=== PATIENT | male | born 1960 | race Caucasian/White ===

== ENCOUNTER → 2016-11-22 09:12 | Emergency (ER) | payer BC ==
[2016-11-22 09:31] VITALS: BP 148/100
--- NOTE | 2016-11-22 12:45 | ED ---
Throat Pain/Nasal Congestion - HPI Summary HPI Summary: 56 male presents with complaints of a FB in right after being poked by a stick while lawn mowing. Patient states he can visibly see the FB. He attempted to flush and removed it but was unable. Patient does not wear contacts or glasses. States he has normal vision. Just some irritation, especialy with blinking which makes it worse. No photophobia. Tearing. No PMHX. No other complaints at this time. - History of Current Complaint Chief Complaint: EDEyeProblem Time Seen by Provider: 11/22/16 10:38 Hx Obtained From: Patient Onset/Duration: Sudden Onset Severity: Mild Associated Signs And Symptoms: Positive: FB Sensation Cough: None - Allergies/Home Medications Allergies/Adverse Reactions: Allergies Allergy/AdvReac Type Severity Reaction Status Date / Time No Known Allergies Allergy Verified 03/02/14 17:24 PMH/Surg Hx/FS Hx/Imm Hx Endocrine/Hematology History: Denies: Hx Diabetes Respiratory History: Denies: Hx Asthma, Hx Chronic Obstructive Pulmonary Disease (COPD) Sensory History: Denies: Hx Contacts or Glasses - Surgical History Surgery Procedure, Year, and Place: n/a - Immunization History Date of Tetanus Vaccine: 02/2014 Immunizations Up to Date: Yes Infectious Disease History: No Infectious Disease History: Denies: Traveled Outside the [place] in Last 30 Days - Family History Known Family History: Positive: None - Social History Alcohol Use: Weekly Substance Use Type: Reports: None Smoking Status (MU): Former Smoker Review of Systems Constitutional: Negative Positive: Other - pain, FB ENT: Negative Cardiovascular: Negative Respiratory: Negative Skin: Negative All Other Systems Reviewed And Are Negative: Yes Physical Exam Triage Information Reviewed: Yes Vital Signs On Initial Exam: Initial Vitals Temp Pulse Resp BP Pulse Ox 97.5 F 73 16 148/100 98 11/22/16 09:28 11/22/16 09:28 11/22/16 09:28 11/22/16 09:28 11/22/16 09:28 BP elevated, noted, patient was in pain and anxious Vital Signs Reviewed: Yes Appearance: Positive: Well-Appearing - anxious, No Pain Distress, Well-Nourished Skin: Positive: Warm, Skin Color Reflects Adequate Perfusion, Dry. Negative: Cold, Pale, Erythema @ Head/Face: Positive: Normal Head/Face Inspection Eyes: Positive: EOMI, SHELLY, Conjunctiva Clear - with brown, small, debris/FB noted, Other: - fluroscein stain completed. FB removed with a q-tip without complication, appeared to be piece of a branch. small abrasion under area FB was embedded noted. no rust ring noted. ENT: Positive: Hearing grossly normal, Pharynx normal, TMs normal Neck: Positive: Supple, Nontender Respiratory/Lung Sounds: Positive: Clear to Auscultation, Breath Sounds Present. Negative: Rales, Rhonchi, Wheezes Cardiovascular: Positive: Normal, RRR, Pulses are Symmetrical in both Upper and Lower Extremities. Negative: Murmur, Rub Musculoskeletal: Positive: Strength/ROM Intact Neurological: Positive: Normal, Sensory/Motor Intact, Alert, Oriented to Person Place, Time Procedures - Eye Procedure Alcaine Drops Administered: Yes - fluroscien stain preformed Eye FB Removal: removal w/ cotton swab - right eye, without complication Eye Irrigated w/ Saline (ccs): 100 Diagnostics - Vital Signs Vital Signs Temp Pulse Resp BP Pulse Ox 11/22/16 10:35 97.3 F 78 17 148/100 100 11/22/16 09:28 97.5 F 73 16 148/100 98 - Laboratory Lab Statement: Any lab studies that have been ordered have been reviewed, and results considered in the medical decision making process. EENT Course/Dx - Course Course Of Treatment: FB was removed using a q-tip without complication. patient tolerated procedure well. due to injury and sign of small corneal abrasion will treat with antibiotic drop. no rust ring noted. aware of worsening signs and symptoms. follow up with pcp and optho. - Differential Diagnoses Differential Diagnoses: Conjunctivitis, Corneal Abrasion, Foreign Body - Diagnoses Provider Diagnoses: Eye foreign body, Corneal abrasion, right Discharge - Discharge Plan Condition: Stable Disposition: HOME Prescriptions: Polymyx/Trimethoprim OPTH* [Polytrim OPHTH*] 1 drop RIGHT EYE Q3H #1 btl Patient Education Materials: Eye Foreign Body (ED) Referrals: Bart Kaur MD [Primary Care Provider] - Additional Instructions: Use prescribed antibiotic drops as directed. You may decrease use after 4 days use to 2-3 times a day. Watch for worsening signs and symptoms to watch out for. If symptoms persist or worsen seek medical attention immediately. Follow up with primary care provider or eye doctor listed below if symptoms persist.
== END | disposition home or self-care (01) ==
LOC: ED 09:12
DX: T15.91XA Foreign body on external eye, part unspecified, right eye, initial encounter (principal); S05.01XA Injury of conjunctiva and corneal abrasion without foreign body, right eye, initial encounter; X58.XXXA Exposure to other specified factors, initial encounter; Y93.9 Activity, unspecified; Y92.9 Unspecified place or not applicable
CPT/HCPCS: 99281